=== PATIENT | female | born 1975 | race Caucasian/White ===

== ENCOUNTER 2021-04-21 19:27 | Emergency (ER) | payer OTHER ==
--- NOTE | 2021-04-21 20:46 | EKG ---
[address] [address] Test Date: 2021-04-21 Test Time: 19:43:37 Pat Name: KAUSHAL CEDEÑO Department: Room: Gender: F [employer]: : 1975 Requested By: CALLIE SUNSHINE Order Number: [id number] Reading MD: Measurements Intervals [place] Rate: 65 P: 48 LA: 144 QRS: 22 QRSD: 88 T: 24 QT: 386 QTc: 406 Interpretive Statements SINUS RHYTHM NORMAL ECG RI6.02 No previous ECG available for comparison
--- NOTE | 2021-04-21 21:12 | PHYS DOC ---
Past History Alcohol Use: Rarely (CALLIE SUNSHINE APRN) General Adult EDM: Chief Complaint: Palpitations HPI: HPI: Patient is a 46-year-old female who received her Covid vaccine on Monday and is presenting today with chest tightness and heart palpitations. Patient states that symptoms started after she received the vaccination. Denies fever. Denies chest pain. Denies nausea/vomiting. (CALLIE SUNSHINE APRN) Review of Systems: Review of Systems: Constitutional: Denies fever. Reports chills Eyes: Denies change in visual acuity HENT: Denies nasal congestion or sore throat Respiratory: Denies cough or shortness of breath Cardiovascular: Ports chest tightness GI: Denies abdominal pain, nausea, vomiting, bloody stools or diarrhea : Denies dysuria Musculoskeletal: Denies back pain or joint pain Integument: Denies rash Neurologic: Denies headache, focal weakness or sensory changes Endocrine: Denies polyuria or polydipsia Lymphatic: Denies swollen glands Psychiatric: Denies depression or anxiety (CALLIE SUNSHINE APRN) Allergies: Allergies: Allergies Coded Allergies Type Severity Reaction Last Updated Verified No Known Drug Allergies 04/21/21 No (CALLIE SUNSHINE APRN) Physical Exam: PE: Constitutional: Well developed, well nourished, no acute distress, non-toxic appearance. [] HENT: Normocephalic, atraumatic, bilateral external ears normal, oropharynx moist, no oral exudates, nose normal. [] Eyes: PERRLA, EOMI, conjunctiva normal, no discharge. [] Neck: Normal range of motion, no tenderness, supple, no stridor. [] Cardiovascular:Heart rate regular rhythm, no murmur [] Lungs & Thorax: Bilateral breath sounds clear to auscultation [] Abdomen: Bowel sounds normal, soft, no tenderness, no masses, no pulsatile masses. [] Skin: Warm, dry, no erythema, no rash. [] Back: No tenderness, no CVA tenderness. [] Extremities: No tenderness, no cyanosis, no clubbing, ROM intact, no edema. [] Neurologic: Alert and oriented X 3, normal motor function, normal sensory function, no focal deficits noted. [] Psychologic: Affect normal, judgement normal, mood normal. [] (CALLIE SUNSHINE APRN) Current Patient Data: Labs: Laboratory Tests Test 04/21/21 20:10 Troponin I Quantitative < 0.017 ng/mL (0-0.055) (CALLIE SUNSHINE APRN) EKG: EKG: [] Sinus rhythm. Heart rate [address] elevation or depression. Read by Dr. Mccall (CALLIE SUNSHINE APRN) Radiology/Procedures: Radiology/Procedures: [] (CALLIE SUNSHINE APRN) Heart Score: C/O Chest Pain: No Risk Factors: Risk Factors: DM, Current or recent (<one month) smoker, HTN, HLP, family history of CAD, obesity. Risk Scores: Score 0 - 3: 2.5% MACE over next 6 weeks - Discharge Home Score 4 - 6: 20.3% MACE over next 6 weeks - Admit for Clinical Observation Score 7 - 10: 72.7% MACE over next 6 weeks - Early Invasive Strategies (CALLIE SUNSHINE APRN) Course & Med Decision Making: Course & Med Decision Making Pertinent Labs and Imaging studies reviewed. (See chart for details) [] 46-year-old female who received Covid vaccine on Monday presents to ER for chest tightness, chills, heart palpitations. Patient states symptoms started after vaccine was received. Palpitations started yesterday. Afebrile. Denies shortness of breath, cough, recent illness. patient is hemodynamically stable. EKG shows sinus rhythm, heart rate 65 bpm. Troponin is negative. Patient most likely is having symptoms associated with anxiety. advised patient that she needs to follow-up with her PCP for further management. Patient is appreciative and okay with discharge plan. Patient hemodynamically stable upon disposition (CALLIE SUNSHINE APRN) Dragon Disclaimer: Chris Disclaimer: This electronic medical record was generated, in whole or in part, using a voice recognition dictation system. (CALLIE SUNSHINE APRN) Departure Departure: Impression: Primary Impression: Chest tightness Additional Impression: Anxiety Disposition: HOME / SELF CARE / HOMELESS Condition: STABLE Referrals: PCP,NO (PCP) Patient Instructions: Palpitations, [id number] Additional Instructions: You were seen in the emergency room for chest tightness, chills, heart palpitations. Your EKG was unremarkable. Your troponin level was negative. Your vitals were within normal limits. Please follow-up with your PCP. Return to the emergency room if you have worsening symptoms or concerns such as an increase in chest pain, shortness of breath, dizziness, weakness. EMERGENCY DEPARTMENT GENERAL DISCHARGE INSTRUCTIONS Thank you for coming to [facility] (ED) today and trusting us with you care. We trust that you had a positivie experience in our Emergency Department. If you wish to speak to the department management, you may call the director at [phone]. YOUR FOLLOW UP INSTRUCTIONS ARE FOLLOWS: 1. Do you have a private Doctor? If you do not have a private doctor, please ask for a resource list of physicians or clinics that may be able to assist you with follow up care. 2. The Emergency Physician has interpreted your x-rays. The X-Ray specialist will also review them. If there is a change in the findings, you will be notified in 48 hours when at all possible. 3. A lab test or culture has been done, your results will be reviewed and you will be notified if you need a change in treatment. ADDITIONAL INSTRUCTIONS AND INFORMATION: 1. Your care today has been supervised by a physician who is specially trained in emergency care. Many problems require more than one evaluation for a complete diagnosis and treatment. We recommend that you schedule your follow up appointment as recommended to ensure complete treatment of you illness or injury. If you are unable to obtain follow up care and continue to have a problem, or if your condition worsens, we recommend that you return to the ED. 2. We are not able to safely determine your condition over the phone nor are we able to give sound medical advice over the phone. For these safety reasons, if you call for medical advice we will ask you to come to the ED for further evaluation. 3. If you have any questions regarding these discharge instructions please call the ED at [phone]. SAFETY INFORMATION: In the interest of safety, wellness, and injury prevention; we encourage you to wear your sealbelt, if you smoke; quite smoking, and we encourage family to use a protective helmet for bicycling and other sporting events that present an increased risk for head injury. IF YOUR SYMPTOMS WORSEN OR NEW SYMPTOMS DEVELOP, OR YOU HAVE CONCERNS ABOUT YOUR CONDITION; OR IF YOUR CONDITION WORSENS WHILE YOU ARE WAITING FOR YOUR FOLLOW UP APPOINTMENT; EITHER CONTACT YOUR PRIMARY CARE DOCTOR, THE PHYSICIAN WHOSE NAME AND NUMBER YOU WERE GIVEN, OR RETURN TO THE ED IMMEDIATELY. Attending Signature Attending Signature I have participated in the care of this patient and I have reviewed and agree with all pertinent clinical information above including history, exam, and recommendations. (KAYLA MCCALL MD) CALLIE SUNSHINE APRN Apr 21, 2021 21:12 KAYLA MCCALL MD Apr 26, 2021 08:20
[2021-04-21 21:35] VITALS: BP 131/75
[2021-04-21] MEDS ORDERED: ALPRAZolam 0.25 MG TABLET ONE (21:41)
[2021-04-21] MEDS: ALPRAZolam 0.25 MG TABLET PO ONE (21:43)
== END 2021-04-21 21:35 | disposition home or self-care (01) ==
LOC: ER 19:27
DX: R07.89 Other chest pain (principal); F41.9 Anxiety disorder, unspecified
CPT/HCPCS: 36415; 84484; 93005; 99284-25